=== PATIENT | male | born 1970 | race Caucasian/White ===

== ENCOUNTER → 2016-08-08 | Outpatient (CLI) | payer BC, OTHER ==
[2016-08-08 09:24] LABS: BUN/CREATININE RATIO 19.33 (6-20); CALCIUM 8.8 mg/dL (8.7-10.7); CREATININE 1.5 mg/dL (0.70-1.50); FREE T4 (FREE THYROXINE) 0.82 ng/dL (0.93-1.71); POTASSIUM 4.8 meq/L (3.8-5.2)
[2016-08-09 13:46] LABS: HEP B CORE IGM ANTIBODY Negative (Negative); HEPATITIS B SURFACE AG Negative (Negative)
[2016-08-09 14:23] LABS: HEPATITIS C ANTIBODY SCREEN Negative (Negative)
== END ==
LOC: LAB 08:01
PROVIDERS: ATTEND Family Medicine
DX: E03.9 Hypothyroidism, unspecified (principal); I12.9 Hypertensive chronic kidney disease with stage 1 through stage 4 chronic kidney disease, or unspecified chronic kidney disease; N18.3 Chronic kidney disease, stage 3 (moderate)
CPT/HCPCS: 36415; 80048; 84439; 84443; 86705; 86709; 86803; 87340

== ENCOUNTER → 2017-01-23 | Outpatient (CLI) | payer BC, OTHER | LOC: LAB 09:07 | PROVIDERS: ATTEND Family Medicine | DX: N18.3 Chronic kidney disease, stage 3 (moderate) (principal); E03.9 Hypothyroidism, unspecified | CPT/HCPCS: 36415; 82306; 83970 ==